=== PATIENT | female | born 1965 | race Caucasian/White ===

== ENCOUNTER 2018-06-02 17:13 | Emergency (ER) | payer OTHER ==
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
[2018-06-02 20:04] VITALS: BP 112/78
== END 2018-06-02 20:03 | disposition home or self-care (01) ==
LOC: ER 17:13
DX: S22.41XA Multiple fractures of ribs, right side, initial encounter for closed fracture (principal); S40.211A Abrasion of right shoulder, initial encounter; S40.811A Abrasion of right upper arm, initial encounter; S80.211A Abrasion, right knee, initial encounter; V29.9XXA Motorcycle rider (driver) (passenger) injured in unspecified traffic accident, initial encounter; I10 Essential (primary) hypertension; F17.210 Nicotine dependence, cigarettes, uncomplicated; Z71.6 Tobacco abuse counseling
CPT/HCPCS: 99283; 99406

== ENCOUNTER 2020-05-17 10:17 | Inpatient (IN) | payer SELFPAY ==
[2020-05-17] MEDS ORDERED: BUTALB/ACETAMINOPHEN/CAFFEINE 1 TAB EACH PO ONE (12:31)
[2020-05-17] MEDS ORDERED: ONDANSETRON 4 MG TAB.RAPDIS PO ONE (12:31)
[2020-05-17 13:04] LABS: ABSOLUTE BASOPHILS # (AUTO) 0.1 10^3/uL (0.0-0.2); ABSOLUTE EOSINOPHILS # (AUTO) 0.1 10^3/uL (0.0-0.6); ABSOLUTE LYMPHOCYTES (AUTO) 1.5 10^3/uL (0.5-4.7); ABSOLUTE MONOCYTES (AUTO) 0.6 10^3/uL (0.1-1.4); ABSOLUTE NEUT (AUTO) 8.3 10^3/uL (1.7-8.2); BASOPHILS % (AUTO) 0.6 % (0-2); EOSINOPHILS % (AUTO) 1.3 % (0-6); HEMATOCRIT 42.5 % (36.0-47.0); HEMOGLOBIN 15.2 g/dL (12.0-15.5); LYMPHOCYTES % (AUTO) 14.4 % (13-45); MEAN CORPUSCULAR HEMOGLOBIN 32.5 pg (27.0-33.4); MEAN CORPUSCULAR HGB CONC 35.9 g/dL (32.0-36.0); MEAN CORPUSCULAR VOLUME 91 fl (80-97); MONOCYTES % (AUTO) 5.5 % (3-13); PLATELET COUNT 280 10^3/uL (150-450); RED BLOOD COUNT 4.69 10^6/uL (3.72-5.28); RED CELL DISTRIBUTION WIDTH 13.2 % (11.5-14.0); SEGMENTED NEUTROPHILS % (AUTO) 78.2 % (42-78); TOTAL CELLS COUNTED % (AUTO) 100 %; WHITE BLOOD COUNT 10.6 10^3/uL (4.0-10.5)
--- NOTE | 2020-05-17 13:06 | RADIOLOGY REPORT (SQ) ---
EXAM DESCRIPTION: FOOT LEFT COMPLETE IMAGES COMPLETED DATE/TIME: 05/17/2020 12:50 pm REASON FOR STUDY: foot pain COMPARISON: None. NUMBER OF VIEWS: Three views. TECHNIQUE: AP, lateral and oblique radiographic images acquired of the left foot. LIMITATIONS: None. FINDINGS: MINERALIZATION: Normal. BONES: No acute fracture or dislocation. No worrisome bone lesions. JOINTS: No effusions. SOFT TISSUES: No soft tissue swelling. No foreign body. OTHER: No other significant finding. IMPRESSION: NEGATIVE STUDY OF THE LEFT FOOT. NO RADIOGRAPHIC EVIDENCE OF ACUTE INJURY. TECHNICAL DOCUMENTATION: JOB ID: [id number] 2010 [employer]- All Rights Reserved Reading location - IP/workstation name: [email or web address]
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
[2020-05-17 13:22] LABS: ALBUMIN 4.6 g/dL (3.5-5.0); ALKALINE PHOSPHATASE 133 U/L (38-126); ASPARTATE AMINO TRANSFERASE 94 U/L (14-36); BILIRUBIN,DIRECT 0.4 mg/dL (0.0-0.4); BILIRUBIN,TOTAL 1.1 mg/dL (0.2-1.3); BLOOD UREA NITROGEN 7 mg/dL (7-20); CALCIUM 9.8 mg/dL (8.4-10.2); CARBON DIOXIDE 32 mmol/L (22-30); CHLORIDE 75 mmol/L (98-107); GLUCOSE 117 mg/dL (75-110); POTASSIUM 3.9 mmol/L (3.6-5.0); TOTAL PROTEIN 7.7 g/dL (6.3-8.2)
[2020-05-17 13:23] LABS: ANION GAP 10 (5-19)
[2020-05-17] MEDS ORDERED: NORMAL SALINE 1000 ML 1,000 ML IV ONE (13:46)
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
[2020-05-17] MEDS ORDERED: NORMAL SALINE 1000 ML 1,000 ML IV PRN (14:44)
[2020-05-17] MEDS: ENOXAPARIN SODIUM INJ 40 MG/0.4 ML DISP.SYRIN SUBCUT SCH (15:59)
[2020-05-17 16:16] LABS: APPEARANCE,URINE CLEAR; BILIRUBIN,URINE NEGATIVE (NEGATIVE); COLOR,URINE STRAW; GLUCOSE, URINE NEGATIVE (NEGATIVE); KETONES,URINE NEGATIVE (NEGATIVE); LEUKOCYTE ESTERASE,URINE NEGATIVE (NEGATIVE); NITRITE,URINE NEGATIVE (NEGATIVE); PROTEIN,URINE NEGATIVE (NEGATIVE); URINE SPECIFIC GRAVITY 1.001; UROBILINOGEN,URINE NEGATIVE mg/dL (<2.0)
[2020-05-17] MEDS ORDERED: NICOTINE 21 MG/24 HR PATCH.TD24 TD PRN (17:52)
[2020-05-17] MEDS ORDERED: BUTALB/ACETAMINOPHEN/CAFFEINE 1 TAB EACH PO PRN (20:59)
[2020-05-18 05:44] LABS: ALKALINE PHOSPHATASE 138 U/L (38-126); ANION GAP 10 (5-19); ASPARTATE AMINO TRANSFERASE 74 U/L (14-36); BILIRUBIN,DIRECT 0.2 mg/dL (0.0-0.4); BILIRUBIN,TOTAL 0.6 mg/dL (0.2-1.3); BLOOD UREA NITROGEN 6 mg/dL (7-20); CALCIUM 9.4 mg/dL (8.4-10.2); CARBON DIOXIDE 27 mmol/L (22-30); CHLORIDE 94 mmol/L (98-107); GLUCOSE 168 mg/dL (75-110); POTASSIUM 3.4 mmol/L (3.6-5.0); TOTAL PROTEIN 6.8 g/dL (6.3-8.2)
[2020-05-18] MEDS: ENOXAPARIN SODIUM INJ 40 MG/0.4 ML DISP.SYRIN SUBCUT SCH (09:52)
[2020-05-18] MEDS ORDERED: BUPRENORPHINE HCL 2 MG SUBLINGUAL TABLET SL SCH (10:00)
[2020-05-18 13:24] VITALS: BP 163/77
[2020-05-18] MEDS ORDERED: CLINDAMYCIN HCL 150 MG CAPSULE PO SCH (15:00)
--- NOTE | 2020-05-18 16:15 | PDOC H&P ---
History of Present Illness Admission Date/PCP: 05/17/20 14:23 History of Present Illness: HAILE LARRY is a 54 year old female,She came to the emergency room for evaluation of nausea, vomiting foot pain. I have not seen this patient in about 3 years, she was taking excessive hydrocodone for pain control, presently follows with treatment center she is on Suboxone. In the emergency room she was found to have severe hyponatremia, 116.8 Past Medical History Cardiac Medical History: Reports: Hypertension Musculoskeltal Medical History: Reports: Arthritis Past Surgical History Past Surgical History: Reports: Orthopedic Surgery - Left hip replacement Social History Smoking Status: Current Every Day Smoker Cigarettes Packs Per Day: 1 Electronic Cigarette use?: No Number of Years Smokin Last Time Smoked: 05/17/20 Frequency of Alcohol Use: Occasional Hx Recreational Drug Use: No Drugs: None Hx Prescription Drug Abuse: No Family History Family History: Reviewed & Not Pertinent Parental Family History Reviewed: Yes Children Family History Reviewed: Yes Sibling(s) Family History Reviewed.: Yes Medication/Allergy Home Medications: Acetaminophen [Tylenol 325 mg Tablet] 650 mg PO Q4HP PRN 05/18/20 Buprenorphine HCl [Subutex 2 mg Sl Tablet] 16 mg PO QAM 05/18/20 Buprenorphine HCl [Subutex 2 mg Sl Tablet] 16 mg SL DAILY tab.subl 05/18/20 Cetirizine HCl [Zyrtec 10 mg Tablet] 10 mg PO DAILY 05/18/20 Clindamycin HCl [Cleocin 150 mg Capsule] 300 mg PO Q8 #15 capsule 05/18/20 Nicotine [Nicoderm 21 mg/24 Hr Transderm Patch] 1 each TD DAILYP PRN patch.td24 05/18/20 Allergies/Adverse Reactions: No Known Allergies Allergy (Verified 06/02/18 17:25) Review of Systems Constitutional: PRESENT: fatigue Eyes: ABSENT: visual disturbances Ears: ABSENT: hearing changes Cardiovascular: ABSENT: chest pain, dyspnea on exertion, edema, orthropnea, palpitations Respiratory: ABSENT: cough, hemoptysis Gastrointestinal: PRESENT: nausea, vomiting Genitourinary: ABSENT: dysuria, hematuria Musculoskeletal: ABSENT: joint swelling Integumentary: ABSENT: rash, wounds Neurological: ABSENT: abnormal gait, abnormal speech, confusion, dizziness, focal weakness, syncope Psychiatric: ABSENT: anxiety, depression, homidical ideation, suicidal ideation Endocrine: ABSENT: cold intolerance, heat intolerance, menstrual abnormalities, polydipsia, polyuria Hematologic/Lymphatic: ABSENT: easy bleeding, easy bruising, lymphadenopathy Physical Exam Vital Signs: Temp Pulse Resp BP Pulse Ox 98.0 F 67 19 163/77 H 99 05/18/20 14:55 05/18/20 14:55 05/18/20 14:55 05/18/20 12:36 05/18/20 14:55 Intake & Output 05/17/20 05/18/20 05/19/20 06:59 06:59 06:59 Intake Total 1720 Balance 1720 Weight 72.1 kg General appearance: PRESENT: no acute distress Head exam: PRESENT: atraumatic, normocephalic Eye exam: PRESENT: PERRLA Mouth exam: PRESENT: dry mucosa Neck exam: PRESENT: full ROM Respiratory exam: PRESENT: clear to auscultation meme Cardiovascular exam: PRESENT: RRR, +S1, +S2 Pulses: PRESENT: +2 pedal pulses bilateral Vascular exam: PRESENT: normal capillary refill GI/Abdominal exam: PRESENT: normal bowel sounds, soft Rectal exam: PRESENT: deferred Extremities exam: PRESENT: other - ulcer in the right foot ,mild Neurological exam: PRESENT: alert, CN II-XII grossly intact Psychiatric exam: PRESENT: appropriate affect, normal mood Skin exam: PRESENT: dry, intact, warm Results Laboratory Results: 05/17/20 12:50 05/18/20 04:07 05/17/20 05/17/20 05/18/20 16:02 16:02 04:07 Sodium 131.0 L Potassium 3.4 L Chloride 94 L Carbon Dioxide 27 Anion Gap 10 BUN 6 L Creatinine 0.41 L Est GFR ( Amer) > 60 Glucose 168 H Calcium 9.4 Total Bilirubin 0.6 AST 74 H Alkaline Phosphatase 138 H Total Protein 6.8 Albumin 4.0 Urine Color STRAW Urine Appearance CLEAR Urine pH 7.0 Ur Specific [place] 1.001 Urine Protein NEGATIVE Urine Glucose (UA) NEGATIVE Urine Ketones NEGATIVE Urine Blood NEGATIVE Urine Nitrite NEGATIVE Ur Leukocyte Esterase NEGATIVE Urine WBC (Auto) 0 Urine RBC (Auto) 1 Urine Osmolality 48 L 05/17/20 15:42 Troponin I < 0.012 Impressions: Foot X-Ray 05/17/20 12:30 IMPRESSION: NEGATIVE STUDY OF THE LEFT FOOT. NO RADIOGRAPHIC EVIDENCE OF ACUTE INJURY. Head CT 05/17/20 12:30 IMPRESSION: 1. No significant interval change since the prior examination dated 08/23/2012. No acute intracranial abnormality. 2. Stable appearing lobulated expansile ground-glass appearing mass in the left ethmoid sinus extends into the left middle meatus of the nasal cavity. There is also ground-glass expansion of the Ros simin without evidence of fracture, stable finding. Considerations for these findings include possible mucoceles. EVIDENCE OF ACUTE STROKE: NO. Assessment & Plan - Diagnosis (1) Hyponatremia Is this a current diagnosis for this admission?: Yes Plan: She has hypovolemic hyponatremic, treat with normal saline to restore volume (2) Ulcer of right foot Qualifiers: Non-pressure ulcer stage: unspecified non-pressure ulcer stage Qualified Code(s): L97.519 - Non-pressure chronic ulcer of other part of right foot with unspecified severity Is this a current diagnosis for this admission?: Yes Plan: clindamycin
--- NOTE | 2020-05-18 16:23 | PDOC DISCHARGE SUMMARY ---
Impression - Admit/DC Date/PCP Admission Date/Primary Care Provider: 05/17/20 14:23 Discharge Date: 05/18/20 - Discharge Diagnosis (1) Hyponatremia Is this a current diagnosis for this admission?: Yes (2) Ulcer of right foot Is this a current diagnosis for this admission?: Yes - Additional Information Discharge Diet: Regular Discharge Activity: Activity As Tolerated, Balance Activity w/Rest Referrals: NATASHA BRANDT MD [ACTIVE STAFF] - 05/26/20 11:00 am Prescriptions: Clindamycin HCl [Cleocin 150 mg Capsule] 300 mg PO Q8 #15 capsule Home Medications: Acetaminophen [Tylenol 325 mg Tablet] 650 mg PO Q4HP PRN 05/18/20 Buprenorphine HCl [Subutex 2 mg Sl Tablet] 16 mg PO QAM 05/18/20 Buprenorphine HCl [Subutex 2 mg Sl Tablet] 16 mg SL DAILY tab.subl 05/18/20 Cetirizine HCl [Zyrtec 10 mg Tablet] 10 mg PO DAILY 05/18/20 Clindamycin HCl [Cleocin 150 mg Capsule] 300 mg PO Q8 #15 capsule 05/18/20 Nicotine [Nicoderm 21 mg/24 Hr Transderm Patch] 1 each TD DAILYP PRN patch.td24 05/18/20 History of Present Illiness History of Present Illness: HAILE LARRY is a 54 year old female,She came to the emergency room for evaluation of nausea, vomiting foot pain. I have not seen this patient in about 3 years, she was taking excessive hydrocodone for pain control, presently follows with treatment center she is on Suboxone. In the emergency room she was found to have severe hyponatremia, 116.8 Hospital Course Hospital Course: Patient is admitted for the management of hyponatremia, was treated with normal saline with improvement of the sodium. She has infected small ulcer of the foot treated with p.o. clindamycin Physical Exam Vital Signs: Temp Pulse Resp BP Pulse Ox 98.0 F 67 19 163/77 H 99 05/18/20 14:55 05/18/20 14:55 05/18/20 14:55 05/18/20 12:36 05/18/20 14:55 Intake & Output 05/17/20 05/18/20 05/19/20 06:59 06:59 06:59 Intake Total 1720 Balance 1720 Weight 72.1 kg General appearance: PRESENT: no acute distress Eye exam: PRESENT: PERRLA Respiratory exam: PRESENT: clear to auscultation meme Cardiovascular exam: PRESENT: +S1, +S2 GI/Abdominal exam: PRESENT: soft Neurological exam: PRESENT: alert Results Laboratory Results: WBC 10.6 10^3/uL (4.0-10.5) H 05/17/20 12:50 RBC 4.69 10^6/uL (3.72-5.28) 05/17/20 12:50 Hgb 15.2 g/dL (12.0-15.5) 05/17/20 12:50 Hct 42.5 % (36.0-47.0) 05/17/20 12:50 MCV 91 fl (80-97) 05/17/20 12:50 MCH 32.5 pg (27.0-33.4) 05/17/20 12:50 MCHC 35.9 g/dL (32.0-36.0) 05/17/20 12:50 RDW 13.2 % (11.5-14.0) 05/17/20 12:50 Plt Count 280 10^3/uL (150-450) 05/17/20 12:50 Lymph % (Auto) 14.4 % (13-45) 05/17/20 12:50 [place] % (Auto) 5.5 % (3-13) 05/17/20 12:50 Eos % (Auto) 1.3 % (0-6) 05/17/20 12:50 Baso % (Auto) 0.6 % (0-2) 05/17/20 12:50 Absolute Neuts (auto) 8.3 10^3/uL (1.7-8.2) H 05/17/20 12:50 Absolute Lymphs (auto) 1.5 10^3/uL (0.5-4.7) 05/17/20 12:50 Absolute Monos (auto) 0.6 10^3/uL (0.1-1.4) 05/17/20 12:50 Absolute Eos (auto) 0.1 10^3/uL (0.0-0.6) 05/17/20 12:50 Absolute Basos (auto) 0.1 10^3/uL (0.0-0.2) 05/17/20 12:50 Seg Neutrophils % 78.2 % (42-78) H 05/17/20 12:50 Sodium 131.0 mmol/L (137-145) L 05/18/20 04:07 Potassium 3.4 mmol/L (3.6-5.0) L 05/18/20 04:07 Chloride 94 mmol/L (98-107) L 05/18/20 04:07 Carbon Dioxide 27 mmol/L (22-30) 05/18/20 04:07 Anion Gap 10 (5-19) 05/18/20 04:07 BUN 6 mg/dL (7-20) L 05/18/20 04:07 Creatinine 0.41 mg/dL (0.52-1.25) L 05/18/20 04:07 Est GFR ( Amer) > 60 (>60) 05/18/20 04:07 Est GFR (MDRD) Non-Af > 60 (>60) 05/18/20 04:07 Glucose 168 mg/dL (75-110) H 05/18/20 04:07 Serum Osmolality 242 mOsm/kg (275-301) L 05/17/20 12:50 Calcium 9.4 mg/dL (8.4-10.2) 05/18/20 04:07 Total Bilirubin 0.6 mg/dL (0.2-1.3) 05/18/20 04:07 Direct Bilirubin 0.2 mg/dL (0.0-0.4) 05/18/20 04:07 Neonat Total Bilirubin Not Reportable 05/18/20 04:07 Neonat Direct Bilirubin Not Reportable 05/18/20 04:07 Neonat Indirect Bili Not Reportable 05/18/20 04:07 AST 74 U/L (14-36) H 05/18/20 04:07 ALT 40 U/L (<35) H 05/18/20 04:07 Alkaline Phosphatase 138 U/L (38-126) H 05/18/20 04:07 Troponin I < 0.012 ng/mL 05/17/20 15:42 Total Protein 6.8 g/dL (6.3-8.2) 05/18/20 04:07 Albumin 4.0 g/dL (3.5-5.0) 05/18/20 04:07 Urine Color STRAW 05/17/20 16:02 Urine Appearance CLEAR 05/17/20 16:02 Urine pH 7.0 (5.0-9.0) 05/17/20 16:02 Ur Specific [place] 1.001 05/17/20 16:02 Urine Protein NEGATIVE mg/dL (NEGATIVE) 05/17/20 16:02 Urine Glucose (UA) NEGATIVE mg/dL (NEGATIVE) 05/17/20 16:02 Urine Ketones NEGATIVE mg/dL (NEGATIVE) 05/17/20 16:02 Urine Blood NEGATIVE (NEGATIVE) 05/17/20 16:02 Urine Nitrite NEGATIVE (NEGATIVE) 05/17/20 16:02 Urine Bilirubin NEGATIVE (NEGATIVE) 05/17/20 16:02 Urine Urobilinogen NEGATIVE mg/dL (<2.0) 05/17/20 16:02 Ur Leukocyte Esterase NEGATIVE (NEGATIVE) 05/17/20 16:02 Urine WBC (Auto) 0 /HPF 05/17/20 16:02 Urine RBC (Auto) 1 /HPF 05/17/20 16:02 Squamous Epi Cells Auto 2 /HPF 05/17/20 16:02 Urine Mucus (Auto) RARE /LPF 05/17/20 16:02 Urine Osmolality 48 mOsm/kg (300-900) L 05/17/20 16:02 Urine Ascorbic Acid NEGATIVE (NEGATIVE) 05/17/20 16:02 05/17/20 15:42 Troponin I < 0.012 Impressions: Foot X-Ray 05/17/20 12:30 IMPRESSION: NEGATIVE STUDY OF THE LEFT FOOT. NO RADIOGRAPHIC EVIDENCE OF ACUTE INJURY. Head CT 05/17/20 12:30 IMPRESSION: 1. No significant interval change since the prior examination dated 08/23/2012. No acute intracranial abnormality. 2. Stable appearing lobulated expansile ground-glass appearing mass in the left ethmoid sinus extends into the left middle meatus of the nasal cavity. There is also ground-glass expansion of the Ros simin without evidence of fracture, stable finding. Considerations for these findings include possible mucoceles. EVIDENCE OF ACUTE STROKE: NO. Stroke Is this a Stroke Patient?: No Acute Heart Failure - Is this a Heart Failure Patient?: No
== END 2020-05-18 15:15 | disposition home or self-care (01) | DRG 641 ==
LOC: ER 10:17 → EH 14:23 → 3W 21:00
PROVIDERS: ADMIT Internal Medicine; ATTEND Internal Medicine
DX: E87.1 Hypo-osmolality and hyponatremia (principal); L97.529 Non-pressure chronic ulcer of other part of left foot with unspecified severity; L08.9 Local infection of the skin and subcutaneous tissue, unspecified; I10 Essential (primary) hypertension; R51 Headache; F17.210 Nicotine dependence, cigarettes, uncomplicated; Z96.642 Presence of left artificial hip joint
CPT/HCPCS: 36415; 70450; 80053; 81001; 83930; 83935; 84484; 85025; 99285; J0571; J1650; J3490; J7030; S0119